=== PATIENT | female | born 1985 | race African-American/Black ===

== ENCOUNTER 2019-01-20 05:37 | Day surgery (SDC) | payer OTHER ==
[2019-01-19 17:32] VITALS: BMI 22.0
[~2019-01-20] VITALS: Ht 170.2 cm; Wt 67.9 kg
[2019-01-20] VITALS (12 sets, daily range): BP systolic 104–140; BP diastolic 59–76; PULSE 78–106; RESP 15–21; Ht 170.2 cm; Wt 67.9 kg
[2019-01-20] MEDS ORDERED: SOD CHLORIDE 0.9% 1,000 ML IV SCH (06:30)
[2019-01-20] MEDS ORDERED: CEFAZOLIN 2 GM/50 ML (PMX) 50 ML IVPB SCH (06:30)
[2019-01-20] MEDS ORDERED: SUCCINYLCHOLINE CHLORIDE 100 MG/5 ML SYG IV ONE (07:00)
[2019-01-20] MEDS ORDERED: MIDAZOLAM 1 MG/ML 2 ML INJ ONE (07:19)
[2019-01-20] MEDS ORDERED: ROCURONIUM 50 MG INJ ONE (07:19)
[2019-01-20] MEDS ORDERED: DEXAMETHASONE 4 MG/ML 5 ML INJ ONE (07:19)
[2019-01-20] MEDS ORDERED: ONDANSETRON 4 MG INJ ONE (07:19)
[2019-01-20] MEDS ORDERED: PROPOFOL 20 ML ONE (07:19)
[2019-01-20] MEDS ORDERED: FENTAnyl 50 MCG/ML VIAL ONE (07:19)
[2019-01-20] MEDS ORDERED: LIDOCAINE 2% (SDV) 5 ML INJ ONE (07:19)
--- NOTE | 2019-01-20 07:24 | PREAC ---
Date/Time of Note Date/Time of Note DATE: 01/20/19 TIME: 07:23 Anesthesia Eval and Record Evaluation Time Pre-Procedure Interview DATE: 01/20/19 TIME: 07:23 Age 33 Sex female NPO: 8 hrs Preoperative diagnosis bilateral axillary cysts Planned procedure excision bilateral axillary cysts Past Medical History Past Medical History: None Surgery & Anesthesia Issues No known issue Meds Anticoagulation: No Beta Angel within 24 hr: No Reason Beta Angel not given: Pt. not on B-Angel No Active Prescriptions or Reported Meds Current Medications Cefazolin Sodium/ Dextrose 50 ml @ 100 mls/hr PREOP IVPB ; Start 01/20/19 at 06:30; Stop 01/20/19 at 19:00 Sodium Chloride 1,000 ml @ 75 mls/hr [id number] IV ; Start 01/20/19 at 06:30; Stop 01/20/19 at 19:00 Meds reviewed: Yes Allergies Coded Allergies: No Known Allergy (Unverified , 01/20/19) NKA PER PRE-OP ORDER SHEET Allergies Reviewed: Yes Labs/Studies Labs Reviewed: Reviewed by anesthesiologist Result Diagram: 01/20/19 0600 Laboratory Tests 01/20/19 06:00 test: Negative Pre-procedure Exam Airway: Adequate mouth opening, Adequate thyromental dist Mallampati: Mallampati I Teeth: Normal Lung: Normal Heart: Normal ASA Physical Status ASA physical status: 1 Emergency: None Planned Anesthetic General/MAC: ETT Pre-operative Attestations Prior to commencing anesthesia and surgery, the patient was re-evaluated, there was verification of: *The patient's identity *The results of appropriate recent lab work and preoperative vital signs *The above evaluation not changing prior to induction *Anesthetic plan, risk benefits, alternative and complications discussed with patient/family; questions answered; patient/family understands, accepts and wishes to proceed. ANNETTA ROACH CRNA Jan 20, 2019 07:24
[2019-01-20] MEDS ORDERED: EPHEDrine 25 MG/5 ML SYG ONE (07:26)
[2019-01-20] MEDS ORDERED: CEFAZOLIN 1 GM INJ ONE ×2 (07:28→08:30)
[2019-01-20] MEDS ORDERED: ONDANSETRON 4 MG INJ IV PRN (07:30)
[2019-01-20] MEDS ORDERED: FENTAnyl 50 MCG/ML VIAL IV PRN (07:30)
[2019-01-20] MEDS ORDERED: BUPIVACAINE 0.5%/EPI (SDV) 30 ML INJ ONE (07:31)
[2019-01-20] MEDS ORDERED: LIDOCAINE 1% (MPF) 30 ML INJ ONE (07:31)
--- NOTE | 2019-01-20 08:02 | HPN ---
Date/Time of Note Date/Time of Note DATE: 01/20/19 TIME: 08:01 Interval H&P Admission Note Pt. seen H&P reviewed: No system changes CAROLYN CARSON Jan 20, 2019 08:02
[2019-01-20] MEDS ORDERED: KETOROLAC 30 MG INJ ONE (08:40)
--- NOTE | 2019-01-20 09:35 | OPR ---
Date/Time of Note Date/Time of Note DATE: 01/20/19 TIME: 09:29 Operative Report Procedure Date: Jan 20, 2019 Preoperative Diagnosis Bilateral axillary hidradenitis suppurativa Postoperative Diagnosis Same Operation/Procedure Performed Excision of skin and subcutaneous tissue for hidradenitis, axillary, with complex repair on the right side Excision of skin and subcutaneous tissue for hidradenitis, axillary, with complex repair on the left side Surgeon see signature line Tactical Response [employer] Officer none Anesthesia Type: general Estimated Blood Loss: 0 - 10 ml's Transfusion none Specimen Bilateral axillary hidradenitis cysts Grafts/Implants none Complications none Pt Condition Post Procedure: stable Disposition: PACU Indications This young lady has bilateral lumps in her axilla and was diagnosed with hidradenitis. The infectious component of the hidradenitis is now fully resolved and she has clean wounds but in order to prevent recurrent infections she will undergo excision of the hidradenitis lesions. The hidradenitis lesions are very focal and limited to the axilla based on exam in one particular area. I explained to the patient prior to surgery that although excision may help cure the disease, recurrence is also very possible and even likely given that the sweat glands exist in the area. For symptomatic relief we will carry out excision and carefully monitor her as she heals. Procedure Description Patient was laid supine on the operating room table with both axilla exposed and prepped and draped with Betadine solution. Timeout was conducted after antibiotics were administered. At the area at the center of the axilla on the right where skin dimpling was present along with palpable deep induration an elliptical incision was made overlying the skin in the area of the hidradenitis with the use of the blade and thereafter deepened with electrocautery through the dermis and subcutaneous tissue. The skin and sweat glands in the subcutaneous tissue were fully excised down to the level of the clavipectoral fascia. Incision was roughly 7 cm x 1 cm. Once it was fully excised it wound cavity was irrigated with normal saline solution and hemostasis was carried out with electrocautery and thereafter the skin was closed with interrupted mattress sutures using 2-0 nylon. I then turned my attention to the left axilla where likewise the patient had dimpling with redundant skin at the area of hidradenitis inflammation. Like the right side there was absolutely no evidence of infection only some chronic inflammatory changes in this area. An elliptical incision measuring 10 x 3 cm was created at the area overlying the hidradenitis within the direction of the skin creases. The skin and subcutaneous tissue were fully excised down to the level of the clavipectoral fascia making sure to take out the hidradenitis cysts and inflamed tissue fully. Once this was done irrigation was carried out and hemostasis was confirmed and conducted with the use of the electrocautery device and the skin was closed with interrupted 2-0 nylon mattress sutures. Wet dry dressings were applied and the incisions were both covered with Dermabond solution. Patient tolerated the procedure well and was disposition to the recovery suite in stable condition. There were no complications all instrument sponge and needle counts were correct at the end of the procedure. CAROLYN CARSON Jan 20, 2019 09:35
--- NOTE | 2019-01-20 11:19 | PAC ---
Date/Time of Note Date/Time of Note DATE: 01/20/19 TIME: 11:19 Post-Anesthesia Notes Post-Anesthesia Note Last documented vital signs Vital Signs Date Temp Pulse Resp B/P (MAP) Pulse Ox O2 O2 Flow FiO2 Time Delivery Rate 01/20/19 98.7 79 18 124/64 99 Room Air 10:41 (84) 01/20/19 8.0 09:28 Activity: WNL Respiratory function: WNL Cardiovascular function: WNL Mental status: Baseline Pain reasonably controlled: Yes Hydration appropriate: Yes Nausea/Vomiting absent: Yes ANNETTA ROACH CRNA Jan 20, 2019 11:19
== END 2019-01-20 11:02 | disposition home or self-care (01) ==
LOC: SDS 05:37
PROVIDERS: ATTEND Surgery Surgical Critical Care
DX: L73.2 Hidradenitis suppurativa (principal)
CPT/HCPCS: 11451; 80053; 85025; 85610; 85730; 88305; J0690; J1100; J1885; J2250; J2405; J3010; Z7512; Z7610